=== PATIENT | male | born 1960 | race Caucasian/White ===

== ENCOUNTER 2022-09-25 07:32 | Day surgery (SDC) | payer MEDICAID ==
[~2022-09-25 07:32] MED LIST: Midazolam 1 MG/ML 2 ML SDV ONE; Propofol 200 MG/20 ML SDV ONE; fentaNYL 50 MCG/ML SDV ONE
[2022-09-25] MEDS ORDERED: Lactated Ringers 1,000 ML IV SCH (08:30)
[2022-09-25] MEDS ORDERED: Propofol 200 MG/20 ML SDV ONE (08:56)
== END 2022-09-25 10:12 | disposition home or self-care (01) ==
LOC: JP.SDS 07:32
PROVIDERS: ATTEND Student in an Organized Health Care Education/Training Program
DX: Z12.11 Encounter for screening for malignant neoplasm of colon (principal); K57.30 Diverticulosis of large intestine without perforation or abscess without bleeding; E78.00 Pure hypercholesterolemia, unspecified; I10 Essential (primary) hypertension; F17.200 Nicotine dependence, unspecified, uncomplicated; Z86.010 Personal history of colon polyps; Z79.899 Other long term (current) drug therapy
CPT/HCPCS: 45378; J2250; J2704; J3010; J7120

== ENCOUNTER 2024-03-02 08:50 | Emergency (ER) | payer MEDICAID ==
[2024-03-02] MEDS: Ketorolac 30 MG/ML SDV IM ONE (09:34)
[2024-03-02] MEDS: Bacitracin Oint 1 GM U/D Packet TOP ONE (09:36)
[2024-03-02] MEDS: Lidocaine 1% with EPINEPHrine 1:100,000 50 ML MDV SUBCUT STA (09:36)
== END 2024-03-02 10:18 | disposition home or self-care (01) ==
LOC: JP.ED 08:50
DX: S41.111A Laceration without foreign body of right upper arm, initial encounter (principal); E78.00 Pure hypercholesterolemia, unspecified; Z79.899 Other long term (current) drug therapy; W54.0XXA Bitten by dog, initial encounter
CPT/HCPCS: 12002; 73080; 96372; 99283; J1885